=== PATIENT | male | born 1975 | race Two or more races ===

== ENCOUNTER → 2024-08-13 | Outpatient (BNVA) | payer MEDICAID, SELFPAY | END | disposition home or self-care (01) | PROVIDERS: PCP Nurse Practitioner Family; Referring Provider Nurse Practitioner Family; Visit Provider Nurse Practitioner Family | DX: Z00.01 Encounter for general adult medical examination with abnormal findings (principal); R73.03 Prediabetes; E55.9 Vitamin D deficiency, unspecified; R42 Dizziness and giddiness | CPT/HCPCS: 99212; G0463 ==